=== PATIENT | female | born 1965 | race American Indian/Alaskan Native ===

== ENCOUNTER 2018-06-17 14:34 | Emergency (ER) | payer MEDICAID ==
--- NOTE | 2018-06-17 15:06 | Emergency Department Report ---
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 Due to findings the following was ordered: ED Disposition for MSE Condition: Stable
[2018-06-17 15:09] VITALS: BP 130/89
[2018-06-17 15:34] LABS: Bacteria,Urine 1+ /HPF (Negative); Bilirubin,Urine NEG (Negative); Blood,Urine NEG (Negative); Color,Urine Amber (Yellow); Hyaline Casts,Urine 4 /LPF; Mucus,Urine 1+ /HPF
--- NOTE | 2018-06-17 15:39 | Emergency Department Report ---
ED Female HPI - General Chief complaint: Urogenital-Female Stated complaint: DISCHARGE/DISCOMFORT Time Seen by Provider: 06/17/18 15:04 Source: patient Mode of arrival: Ambulatory Limitations: No Limitations - History of Present Illness Initial comments: Ms. Tamayo is a very pleasant 52 yo female who presents with vaginal discharge and irritation. She is concerned for yeast infection or BV. No abdominal pain. Has had constipation. MD Complaint: vaginal discharge -: days(s) (3) Severity: mild Quality: other (vaginal irritation) Consistency: constant Improves with: none Worsens with: none Are you Now?: No - Related Data Previous Rx's Medication Instructions Recorded Last Taken Type Gabapentin [Neurontin] 300 mg PO TID #90 capsule 08/05/15 Unknown Rx Lurasidone HCl [Latuda] 80 mg PO QDAY #30 tablet 08/05/15 Unknown Rx Meloxicam 15 mg PO QDAY #10 tablet 08/05/15 Unknown Rx QUEtiapine [SEROquel] 200 mg PO BID #60 tablet 08/05/15 Unknown Rx amLODIPine [Norvasc] 2.5 mg PO QHS #15 tab 08/05/15 Unknown Rx hydroCHLOROthiazide [HCTZ] 12.5 mg PO QDAY #30 capsule 08/05/15 Unknown Rx metFORMIN [Glucophage] 500 mg PO BID #60 tablet 08/05/15 Unknown Rx traZODone [Desyrel] 100 mg PO BID #20 tablet 08/05/15 Unknown Rx Fluconazole [Diflucan TAB] 150 mg PO ONCE #1 tablet 06/17/18 Unknown Rx metroNIDAZOLE [Flagyl] 500 mg PO Q12HR 7 Days #14 tab 06/17/18 Unknown Rx Allergies Allergy/AdvReac Type Severity Reaction Status Date / Time amoxicillin AdvReac Shortness Verified 08/01/15 13:51 of Breath erythromycin base AdvReac Shortness Verified 08/01/15 13:51 of Breath Tetracyclines AdvReac Shortness Verified 08/01/15 13:51 of Breath vancomycin AdvReac Shortness Verified 08/01/15 13:51 of Breath ED Review of Systems ROS: Stated complaint: DISCHARGE/DISCOMFORT Other details as noted in HPI Constitutional: denies: fever, malaise Gastrointestinal: constipation. denies: abdominal pain, vomiting ED Past Medical Hx - Past Medical History Hx Hypertension: Yes Hx Heart Attack/AMI: No Hx Diabetes: Yes Hx Arthritis: Yes Hx Psychiatric Treatment: Yes (bipolar, depression) Hx Asthma: Yes Hx COPD: Yes - Surgical History Additional Surgical History: hand and foot repair. carpal tunnel repair - Social History Smoking Status: Never Smoker Substance Use Type: None - Medications Home Medications: Home Medications Medication Instructions Recorded Confirmed Last Taken Type Gabapentin [Neurontin] 300 mg PO TID #90 capsule 08/05/15 Unknown Rx Lurasidone HCl [Latuda] 80 mg PO QDAY #30 tablet 08/05/15 Unknown Rx Meloxicam 15 mg PO QDAY #10 tablet 08/05/15 Unknown Rx QUEtiapine [SEROquel] 200 mg PO BID #60 tablet 08/05/15 Unknown Rx amLODIPine [Norvasc] 2.5 mg PO QHS #15 tab 08/05/15 Unknown Rx hydroCHLOROthiazide [HCTZ] 12.5 mg PO QDAY #30 capsule 08/05/15 Unknown Rx metFORMIN [Glucophage] 500 mg PO BID #60 tablet 08/05/15 Unknown Rx traZODone [Desyrel] 100 mg PO BID #20 tablet 08/05/15 Unknown Rx Fluconazole [Diflucan TAB] 150 mg PO ONCE #1 tablet 06/17/18 Unknown Rx metroNIDAZOLE [Flagyl] 500 mg PO Q12HR 7 Days #14 tab 06/17/18 Unknown Rx ED Physical Exam - General Limitations: No Limitations General appearance: alert, in no apparent distress - Head Head exam: Present: atraumatic, normocephalic - Eye Eye exam: Present: normal appearance - ENT ENT exam: Present: mucous membranes moist - Neck Neck exam: Present: normal inspection, full ROM - Respiratory Respiratory exam: Present: normal lung sounds bilaterally. Absent: respiratory distress, wheezes, rales - GI/Abdominal GI/Abdominal exam: Present: soft. Absent: distended, tenderness, guarding, rebound - Neurological Exam Neurological exam: Present: alert, oriented X3 - Psychiatric Psychiatric exam: Present: normal affect, normal mood ED Course Vital Signs 06/17/18 15:05 Pulse Rate 95 H Respiratory 16 Rate Blood Pressure 130/89 O2 Sat by Pulse 95 Oximetry ED Medical Decision Making - Medical Decision Making Vaginitis: Rx: fluconazole, metronidazole Critical care attestation.: If time is entered above; I have spent that time in minutes in the direct care of this critically ill patient, excluding procedure time. ED Disposition Clinical Impression: Vaginitis Disposition: DC-01 TO HOME OR SELFCARE Is pt being admited?: No Does the pt Need Aspirin: No Condition: Stable Instructions: Bacterial Vaginosis (ED), Vulvovaginal Candidiasis (ED) Prescriptions: Fluconazole [Diflucan TAB] 150 mg PO ONCE #1 tablet metroNIDAZOLE [Flagyl] 500 mg PO Q12HR 7 Days #14 tab
== END 2018-06-17 16:01 | disposition home or self-care (01) ==
LOC: ED 14:34
DX: N76.0 Acute vaginitis (principal); K59.00 Constipation, unspecified; I10 Essential (primary) hypertension; E11.9 Type 2 diabetes mellitus without complications; M19.90 Unspecified osteoarthritis, unspecified site; F31.9 Bipolar disorder, unspecified; J44.9 Chronic obstructive pulmonary disease, unspecified; Z88.1 Allergy status to other antibiotic agents
CPT/HCPCS: 81001; 99283

== ENCOUNTER 2018-10-30 13:05 | Emergency (ER) | payer MEDICAID ==
[2018-10-30 13:21] VITALS: BP 147/87
--- NOTE | 2018-10-30 13:21 | Event Note ---
ED Screening Note ED Screening Note: pt presents for a diffuse COLE that began last night tingling/throbbing N/V PMHx of aneurysm 2016, had a coil placed, bipolar, depression, COPD, DM no numbness or weakness no vision changes This initial assessment/diagnostic orders/clinical plan/treatment(s) is/are subject to change based on patients health status, clinical progression and re- assessment by fellow clinical providers in the ED. Further treatment and workup at subsequent clinical providers discretion. Patient/guardian urged not to elope from the ED as their condition may be serious if not clinically assessed and managed. Initial orders include: CT head
--- NOTE | 2018-10-30 14:08 | XRay Report ---
CHEST 2 VIEWS INDICATION: CP. COMPARISON: None. FINDINGS: Support devices: None. Heart: Within normal limits. Lungs/Pleura: No acute air space or interstitial disease. No significant pleural effusion. IMPRESSION: No acute findings. Signer Name: Valdemar Rogers MD Signed: 10/30/2018 2:04 PM Workstation Name: [id number]
--- NOTE | 2018-10-30 14:37 | Cat Scan Report ---
CT head without contrast INDICATION : History of aneurysm, dizziness and headache for one week, nausea and vomiting for one ye ar. TECHNIQUE: Axial imaging performed from the skull apex through the skull base without the use of con trast. All CT scans at this location are performed using CT dose reduction for ALARA by means of aut omated exposure control. COMPARISON: 08/01/2015 FINDINGS: Parenchyma: No acute intracranial hemorrhage or parenchymal abnormality. There is been interval coil ing of an aneurysm along the right side of the [place] since the previous exam. 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 Ventricles: Ventricles are normal in size and appear symmetric. Soft tissues: Soft tissues including the orbits appear normal. Bones: No acute osseous abnormality. Sinuses: Sinuses and mastoid air cells are clear. IMPRESSION: No acute abnormality. Signer Name: Robert Chicas Jr, MD Signed: 10/30/2018 2:33 PM Workstation Name: [id number]
[2018-10-30 15:26] LABS: Basophils # (Auto) 0.1 K/mm3 (0.0-0.1); Basophils % (Auto) 1.2 % (0.0-1.8); Eosinophils # (Auto) 0.2 K/mm3 (0.0-0.4); Hematocrit 39.1 % (30.3-42.9); Hemoglobin 13.4 gm/dl (10.1-14.3); Lymphocytes # (Auto) 4.5 K/mm3 (1.2-5.4); Lymphocytes % (Auto) 42.6 % (13.4-35.0); Mean Corpuscular HGB Conc 34 % (30-34); Mean Corpuscular Volume 94 fl (79-97); Monocytes # (Auto) 0.7 K/mm3 (0.0-0.8); Monocytes % (Auto) 6.3 % (0.0-7.3); Platelet Count 317 K/mm3 (140-440); Red Blood Count 4.17 M/mm3 (3.65-5.03); Red Cell Distribution Width 13.7 % (13.2-15.2)
[2018-10-30 15:46] LABS: BUN/Creatinine Ratio 17; Blood Urea Nitrogen 15 mg/dL (7-17); Calcium 9.6 mg/dL (8.4-10.2); Hemolysis Index 9
--- NOTE | 2018-10-30 18:10 | Emergency Department Report ---
ED Headache HPI - General Chief Complaint: Headache Stated Complaint: HEADACHE Time Seen by Provider: 10/30/18 13:17 Source: patient Exam Limitations: no limitations - History of Present Illness Initial Comments: h/o headaches, presents to ER for headaches for days, no fever, no neck pain, pain is moderate, without radiation. no alleviating or exacerbating factors. has not taken any meds for symptoms. no recent head trauma. Timing/Duration: 1 week, decreasing, waxing and waning Quality: moderate Head Injury Location: frontal, temporal Recent Head Trauma: frequent headaches, chronic headaches Modifying Factors: improves with: exposure to light. worse with: cold therapy Associated Symptoms: nausea/vomiting Allergies/Adverse Reactions: Allergies amoxicillin Adverse Reaction (Verified 08/01/15 13:51) Shortness of Breath erythromycin base Adverse Reaction (Verified 08/01/15 13:51) Shortness of Breath Tetracyclines Adverse Reaction (Verified 08/01/15 13:51) Shortness of Breath vancomycin Adverse Reaction (Verified 08/01/15 13:51) Shortness of Breath Home Medications: Ambulatory Orders Gabapentin [Neurontin] 300 mg PO TID #90 capsule 08/05/15 Lurasidone HCl [Latuda] 80 mg PO QDAY #30 tablet 08/05/15 Meloxicam 15 mg PO QDAY #10 tablet 08/05/15 QUEtiapine [SEROquel] 200 mg PO BID #60 tablet 08/05/15 amLODIPine [Norvasc] 2.5 mg PO QHS #15 tab 08/05/15 hydroCHLOROthiazide [HCTZ] 12.5 mg PO QDAY #30 capsule 08/05/15 metFORMIN [Glucophage] 500 mg PO BID #60 tablet 08/05/15 traZODone [Desyrel] 100 mg PO BID #20 tablet 08/05/15 Fluconazole [Diflucan TAB] 150 mg PO ONCE #1 tablet 06/17/18 metroNIDAZOLE [Flagyl] 500 mg PO Q12HR 7 Days #14 tab 06/17/18 Ketorolac [Toradol] 10 mg PO Q6H PRN #12 tablet 10/30/18 Promethazine [Phenergan] 25 mg PO Q6HR PRN #15 tab 10/30/18 ED Review of Systems ROS: Stated complaint: HEADACHE Other details as noted in HPI Comment: All other systems reviewed and negative Respiratory: denies: cough, orthopnea Cardiovascular: denies: chest pain, palpitations Endocrine: denies: excessive sweating Gastrointestinal: denies: nausea, vomiting Neurological: headache ED Past Medical Hx - Past Medical History Previous Medical History?: Yes Hx Hypertension: Yes Hx Heart Attack/AMI: No Hx Diabetes: Yes Hx Arthritis: Yes Hx Psychiatric Treatment: Yes (bipolar, depression) Hx Asthma: Yes Hx COPD: Yes Additional medical history: aneurysm, elevated cholesterol - Surgical History Past Surgical History?: Yes Additional Surgical History: hand and foot repair. carpal tunnel repair. aneurysm - Social History Smoking Status: Never Smoker Substance Use Type: None - Medications Home Medications: Home Medications Medication Instructions Recorded Confirmed Last Taken Type Gabapentin [Neurontin] 300 mg PO TID #90 capsule 08/05/15 Unknown Rx Lurasidone HCl [Latuda] 80 mg PO QDAY #30 tablet 08/05/15 Unknown Rx Meloxicam 15 mg PO QDAY #10 tablet 08/05/15 Unknown Rx QUEtiapine [SEROquel] 200 mg PO BID #60 tablet 08/05/15 Unknown Rx amLODIPine [Norvasc] 2.5 mg PO QHS #15 tab 08/05/15 Unknown Rx hydroCHLOROthiazide [HCTZ] 12.5 mg PO QDAY #30 capsule 08/05/15 Unknown Rx metFORMIN [Glucophage] 500 mg PO BID #60 tablet 08/05/15 Unknown Rx traZODone [Desyrel] 100 mg PO BID #20 tablet 08/05/15 Unknown Rx Fluconazole [Diflucan TAB] 150 mg PO ONCE #1 tablet 06/17/18 Unknown Rx metroNIDAZOLE [Flagyl] 500 mg PO Q12HR 7 Days #14 tab 06/17/18 Unknown Rx Ketorolac [Toradol] 10 mg PO Q6H PRN #12 tablet 10/30/18 Unknown Rx Promethazine [Phenergan] 25 mg PO Q6HR PRN #15 tab 10/30/18 Unknown Rx ED Physical Exam - General Limitations: No Limitations General appearance: alert, in no apparent distress - Head Head exam: Present: atraumatic, normocephalic - Eye Eye exam: Present: normal appearance, PERRL, EOMI Pupils: Present: normal accommodation - ENT ENT exam: Present: normal exam - Neck Neck exam: Present: normal inspection - Respiratory Respiratory exam: Present: normal lung sounds bilaterally - Cardiovascular Cardiovascular Exam: Present: regular rate, normal rhythm - GI/Abdominal GI/Abdominal exam: Present: soft, normal bowel sounds - Rectal Rectal exam: Present: deferred - Extremities Exam Extremities exam: Present: normal inspection, full ROM - Back Exam Back exam: Present: normal inspection - Neurological Exam Neurological exam: Present: alert, oriented X3, CN II-XII intact - Psychiatric Psychiatric exam: Present: normal affect, normal mood - Skin Skin exam: Present: warm ED Course Vital Signs 10/30/18 10/30/18 13:18 18:21 Temperature 98.1 F Pulse Rate 89 Respiratory 18 18 Rate Blood Pressure 147/87 O2 Sat by Pulse 100 Oximetry ED Medical Decision Making - Lab Data Result diagrams: 10/30/18 15:14 10/30/18 15:14 Critical care attestation.: If time is entered above; I have spent that time in minutes in the direct care of this critically ill patient, excluding procedure time. ED Disposition Clinical Impression: Headache Qualifiers: Headache type: tension-type Headache chronicity pattern: acute headache Intractability: not intractable Qualified Code(s): G44.209 - Tension-type headache, unspecified, not intractable Disposition: DC-01 TO HOME OR SELFCARE Is pt being admited?: No Does the pt Need Aspirin: No Condition: Stable Instructions: Acute Headache (ED) Prescriptions: Promethazine [Phenergan] 25 mg PO Q6HR PRN #15 tab PRN Reason: Nausea Ketorolac [Toradol] 10 mg PO Q6H PRN #12 tablet PRN Reason: Pain Referrals: ELIZABET PICHARDO MD [Primary Care Provider] - 3-5 Days
[2018-10-30] MEDS ORDERED: NORCO 5/325 PO ONE (18:11)
== END 2018-10-30 18:30 | disposition home or self-care (01) ==
LOC: ED 13:05
DX: R51 Headache (principal); R11.2 Nausea with vomiting, unspecified; I10 Essential (primary) hypertension; E11.9 Type 2 diabetes mellitus without complications; M19.90 Unspecified osteoarthritis, unspecified site; F31.9 Bipolar disorder, unspecified; J44.9 Chronic obstructive pulmonary disease, unspecified; E78.00 Pure hypercholesterolemia, unspecified; G89.29 Other chronic pain; Z98.890 Other specified postprocedural states; Z88.1 Allergy status to other antibiotic agents; Z79.899 Other long term (current) drug therapy
CPT/HCPCS: 36415; 70450; 71046; 80048; 84484; 85025; 93005; 93010; 99284

== ENCOUNTER 2018-12-19 07:27 | Outpatient (CLI) | payer MEDICAID ==
--- NOTE | 2018-12-19 12:04 | Cat Scan Report ---
CT LUMBAR SPINE WITHOUT CONTRAST HISTORY: Back pain; leg pain COMPARISON: None TECHNIQUE: CT images of the lumbar spine were obtained without contrast. Sagittal and coronal reform ats were post-processed. All CT scans at this location are performed using CT dose reduction for ALAR A by means of automated exposure control. CONTRAST: None. FINDINGS: Alignment: Normal. No traumatic subluxation. Vertebrae:No significant abnormality. No fracture. Disc Spaces: T12-L1 disc space is normal. L1-L2 disc space is normal. Accumulation of gas is seen in the intradural vertebral discs at L2-L3, L3-L4, L4-L5 and L5-S1 disc l evels due to degenerative changes. At L2-L3 disc level, broad-based disc protrusion is seen extending bilaterally more to the right side . The lateral bony spur is seen on the right side. Neuroforamina are narrowed. At L3-L4 disc level, broad-based disc protrusion is seen extending laterally bilaterally more to the left neuroforamina are narrowed.. Disc material is extruding superiorly. At L4-L5 disc level, broad-based disc protrusion is seen extending laterally bilaterally. Both neurof oramina are narrowed. Facet joint degenerative changes are seen bilaterally. At L5-S1 disc level, broad-based disc protrusion is seen with calcified annulus. Both lateral recesse s are stenotic. Neuroforamina are narrowed.. Facet Joints:Facet joint hypertrophic degenerative changes are seen bilaterally in the last 2 lumbar disc levels. Additional Findings: None IMPRESSION: 1. Soft disc protrusions at L2-L3, L3-L4, L4-L5 and L5-S1 disc levels with foraminal stenoses Signer Name: Patrick Weeks MD Signed: 12/19/2018 12:00 PM Workstation Name: [id number]
== END 2018-12-19 07:28 | disposition home or self-care (01) ==
LOC: CT 07:27
PROVIDERS: ATTEND Specialist
DX: M51.27 Other intervertebral disc displacement, lumbosacral region (principal)
CPT/HCPCS: 72131